=== PATIENT | male | born 1940 | race Caucasian/White ===

== ENCOUNTER 2017-12-06 07:55 | Day surgery (SDC) | payer MEDICARE, BC ==
[2017-12-06] VITALS (23 sets, daily range): BP systolic 68–153; BP diastolic 33–91
[~2017-12-06] VITALS: Ht 180.3 cm; Wt 93.4 kg
[~2017-12-06 07:55] MED LIST: HYDR12.55 PO
[2017-12-06] MEDS ORDERED: LIDOcaine 1% 30ml preserv. free vial ONE (08:29)
[2017-12-06] MEDS ORDERED: albumin (human) 25% 100ml IV 100 ML IV ONE ×2 (08:39→09:13)
[2017-12-06] MEDS ORDERED: LIDOcaine 1% 30ml preserv. free vial SQ ONE (09:00)
[2017-12-06] MEDS ORDERED: normal saline 1000ml 1,000 ML IV ONE ×2 (09:15→10:45)
[2017-12-06] MEDS ORDERED: CHOL10002 PO (10:21)
== END 2017-12-06 12:10 | disposition home or self-care (01) ==
LOC: SSTAY O 07:55
PROVIDERS: ATTEND Radiology Diagnostic Radiology
DX: K70.31 Alcoholic cirrhosis of liver with ascites (principal); E78.5 Hyperlipidemia, unspecified; I25.10 Atherosclerotic heart disease of native coronary artery without angina pectoris; I10 Essential (primary) hypertension; D69.6 Thrombocytopenia, unspecified; F17.210 Nicotine dependence, cigarettes, uncomplicated; J44.9 Chronic obstructive pulmonary disease, unspecified; Z95.5 Presence of coronary angioplasty implant and graft; Z85.46 Personal history of malignant neoplasm of prostate; Z72.89 Other problems related to lifestyle; Z79.899 Other long term (current) drug therapy
CPT/HCPCS: 49083; A6257; J3490; J7030; P9047

== ENCOUNTER 2017-12-22 07:56 | Day surgery (SDC) | payer MEDICARE, BC ==
[~2017-12-22] VITALS: Ht 180.3 cm; Wt 90.0 kg
[2017-12-22] VITALS (17 sets, daily range): BP systolic 69–144; BP diastolic 41–91
[~2017-12-22 07:56] MED LIST changes: +CHOL10002 PO; +LIDOcaine 1% 30ml preserv. free vial SQ STA
[2017-12-22] MEDS ORDERED: normal saline 1000ml 1,000 ML IV PRN (08:30)
[2017-12-22] MEDS: albumin (human) 25% 100 ML IV solution IV PRN ×2 (08:53→09:40)
== END 2017-12-22 11:40 | disposition home or self-care (01) ==
LOC: SSTAY O 07:56
PROVIDERS: ATTEND Radiology Diagnostic Radiology
DX: K70.31 Alcoholic cirrhosis of liver with ascites (principal); E78.5 Hyperlipidemia, unspecified; I25.10 Atherosclerotic heart disease of native coronary artery without angina pectoris; I10 Essential (primary) hypertension; F17.210 Nicotine dependence, cigarettes, uncomplicated; J44.9 Chronic obstructive pulmonary disease, unspecified; Z85.46 Personal history of malignant neoplasm of prostate; Z95.5 Presence of coronary angioplasty implant and graft; Z90.79 Acquired absence of other genital organ(s); Z72.89 Other problems related to lifestyle; Z79.899 Other long term (current) drug therapy
CPT/HCPCS: 49083; A6257; J3490; J7030; P9047

== ENCOUNTER 2018-01-06 08:18 | Day surgery (SDC) | payer MEDICARE, BC ==
[~2018-01-06] VITALS: Ht 180.3 cm; Wt 89.2 kg
[2018-01-06] VITALS (7 sets, daily range): BP systolic 110–118; BP diastolic 49–82
[2018-01-06] MEDS ORDERED: albumin (human) 25% 100 ML IV solution IV PRN (08:40)
[2018-01-06] MEDS ORDERED: normal saline 1000ml 1,000 ML IV PRN (08:40)
[2018-01-06] MEDS ORDERED: LIDOcaine 1% (10mg/ml) 2ml vial ONE (09:00)
== END 2018-01-06 10:20 | disposition home or self-care (01) ==
LOC: SSTAY O 08:18
PROVIDERS: ATTEND Radiology Vascular & Interventional Radiology
DX: K70.31 Alcoholic cirrhosis of liver with ascites (principal); E78.5 Hyperlipidemia, unspecified; I25.10 Atherosclerotic heart disease of native coronary artery without angina pectoris; I10 Essential (primary) hypertension; F17.210 Nicotine dependence, cigarettes, uncomplicated; J44.9 Chronic obstructive pulmonary disease, unspecified; F10.10 Alcohol abuse, uncomplicated; Z85.46 Personal history of malignant neoplasm of prostate; Z95.5 Presence of coronary angioplasty implant and graft; Z79.899 Other long term (current) drug therapy
CPT/HCPCS: 49083; A6257; J3490; J7030; P9047

== ENCOUNTER 2018-01-20 08:19 | Day surgery (SDC) | payer MEDICARE, BC ==
[~2018-01-20] VITALS: Ht 180.3 cm; Wt 88.3 kg
[2018-01-20] MEDS ORDERED: LIDOcaine 1%/PF (10mg/ml) 5ml vial ONE (08:34)
[2018-01-20] MEDS ORDERED: normal saline 1000ml 1,000 ML IV PRN (08:50)
[2018-01-20] MEDS ORDERED: albumin (human) 25% 100 ML IV solution IV PRN (08:50)
[2018-01-20 08:54] VITALS: BP 134/76
[2018-01-20 09:00] VITALS: BP 111/64
[2018-01-20 09:15] VITALS: BP 119/65
[2018-01-20 09:30] VITALS: BP 127/65
[2018-01-20 09:45] VITALS: BP 108/70
[2018-01-20] MEDS ORDERED: SPIR25TA3 PO (09:52)
[2018-01-20 10:00] VITALS: BP 114/62
== END 2018-01-20 10:05 | disposition home or self-care (01) ==
LOC: SSTAY O 08:19
PROVIDERS: ATTEND Radiology Vascular & Interventional Radiology
DX: K70.31 Alcoholic cirrhosis of liver with ascites (principal); E78.5 Hyperlipidemia, unspecified; I25.10 Atherosclerotic heart disease of native coronary artery without angina pectoris; I71.4 Abdominal aortic aneurysm, without rupture; I10 Essential (primary) hypertension; J44.9 Chronic obstructive pulmonary disease, unspecified; F17.210 Nicotine dependence, cigarettes, uncomplicated; Z90.79 Acquired absence of other genital organ(s); Z85.46 Personal history of malignant neoplasm of prostate; Z95.5 Presence of coronary angioplasty implant and graft; Z72.89 Other problems related to lifestyle; Z79.899 Other long term (current) drug therapy; Z98.890 Other specified postprocedural states
CPT/HCPCS: 49083; A6257; J2001; J3490; J7030; P9047

== ENCOUNTER 2018-02-03 08:18 | Day surgery (SDC) | payer MEDICARE, BC ==
[2018-02-03] VITALS (12 sets, daily range): BP systolic 81–122; BP diastolic 42–70
[~2018-02-03] VITALS: Ht 180.3 cm; Wt 87.2 kg
[~2018-02-03 08:18] MED LIST changes: -HYDR12.55 PO; +LIDOcaine 1% (10mg/ml) 2ml vial SQ ONE; +LIDOcaine 1% (10mg/ml) 5ml syringe IJ ONE; -LIDOcaine 1% 30ml preserv. free vial SQ STA; +SPIR25TA3 PO
[2018-02-03] MEDS ORDERED: normal saline 1000ml 1,000 ML IV PRN (08:50)
[2018-02-03] MEDS: albumin (human) 25% 100 ML IV solution IV PRN ×2 (09:35→09:59)
[2018-02-03] MEDS ORDERED: MAGN100T5 PO (09:47)
[2018-02-03] MEDS ORDERED: ondansetron/PF 4mg/2ml inj ONE (10:59)
[2018-02-03] MEDS ORDERED: ondansetron/PF 4mg/2ml inj IV ONE (11:05)
== END 2018-02-03 11:30 | disposition home or self-care (01) ==
LOC: SSTAY O 08:18
PROVIDERS: ATTEND Radiology Diagnostic Radiology
DX: K70.31 Alcoholic cirrhosis of liver with ascites (principal); E78.5 Hyperlipidemia, unspecified; I25.10 Atherosclerotic heart disease of native coronary artery without angina pectoris; H40.9 Unspecified glaucoma; Z85.46 Personal history of malignant neoplasm of prostate; Z98.890 Other specified postprocedural states; Z95.5 Presence of coronary angioplasty implant and graft; Z79.899 Other long term (current) drug therapy
CPT/HCPCS: 49083; A6257; A6449; J2405; J3490; J7030; P9047; J2001

== ENCOUNTER 2018-02-16 07:45 | Day surgery (SDC) | payer MEDICARE, BC ==
[~2018-02-16] VITALS: Ht 180.3 cm; Wt 88.3 kg
[~2018-02-16 07:45] MED LIST changes: -LIDOcaine 1% (10mg/ml) 2ml vial SQ ONE; -LIDOcaine 1% (10mg/ml) 5ml syringe IJ ONE; +LIDOcaine 1% 30ml preserv. free vial SQ STA; +MAGN100T5 PO; -SPIR25TA3 PO; +SPIR25TA5 PO
[2018-02-16] MEDS ORDERED: normal saline 1000ml 1,000 ML IV PRN (08:05)
[2018-02-16] MEDS ORDERED: albumin (human) 25% 100 ML IV solution IV PRN (08:05)
[2018-02-16 08:52] VITALS: BP 136/79
[2018-02-16 09:00] VITALS: BP 115/64
[2018-02-16 09:15] VITALS: BP 95/48
[2018-02-16 09:30] VITALS: BP 111/51
[2018-02-16 09:45] VITALS: BP 111/57
[2018-02-16 10:14] VITALS: BP 119/68
== END 2018-02-16 10:25 | disposition home or self-care (01) ==
LOC: SSTAY O 07:45
PROVIDERS: ATTEND Radiology Diagnostic Radiology
DX: K70.31 Alcoholic cirrhosis of liver with ascites (principal); J44.9 Chronic obstructive pulmonary disease, unspecified; I10 Essential (primary) hypertension; I25.10 Atherosclerotic heart disease of native coronary artery without angina pectoris; H40.9 Unspecified glaucoma; F17.210 Nicotine dependence, cigarettes, uncomplicated; E78.5 Hyperlipidemia, unspecified; Z72.89 Other problems related to lifestyle; Z95.5 Presence of coronary angioplasty implant and graft; Z90.79 Acquired absence of other genital organ(s); Z85.46 Personal history of malignant neoplasm of prostate; Z79.899 Other long term (current) drug therapy; Z98.890 Other specified postprocedural states
CPT/HCPCS: 49083; A6257; J3490; J7030; P9047

== ENCOUNTER 2018-03-01 08:46 | Day surgery (SDC) | payer MEDICARE, BC ==
[2018-03-01] VITALS (22 sets, daily range): BP systolic 59–130; BP diastolic 22–80
[~2018-03-01] VITALS: Ht 180.3 cm; Wt 86.4 kg
[~2018-03-01 08:46] MED LIST changes: -LIDOcaine 1% 30ml preserv. free vial SQ STA
[2018-03-01] MEDS ORDERED: normal saline 1000ml 1,000 ML IV PRN (09:50)
[2018-03-01] MEDS ORDERED: LIDOcaine 1% 30ml preserv. free vial SQ STA (09:57)
[2018-03-01] MEDS ORDERED: normal saline 1000ml 1,000 ML IV ONE (10:30)
[2018-03-01] MEDS: albumin (human) 25% 100 ML IV solution IV PRN ×2 (11:52→11:56)
[2018-03-01] MEDS ORDERED: diphenhydrAMINE 50 mg/ml inj IV ONE (13:10)
== END 2018-03-01 16:00 | disposition home or self-care (01) ==
LOC: SSTAY O 08:46
PROVIDERS: ATTEND Radiology Diagnostic Radiology
DX: K70.31 Alcoholic cirrhosis of liver with ascites (principal); E78.5 Hyperlipidemia, unspecified; I25.10 Atherosclerotic heart disease of native coronary artery without angina pectoris; I10 Essential (primary) hypertension; F17.210 Nicotine dependence, cigarettes, uncomplicated; J44.9 Chronic obstructive pulmonary disease, unspecified; Z95.5 Presence of coronary angioplasty implant and graft; Z90.79 Acquired absence of other genital organ(s); Z72.89 Other problems related to lifestyle; Z79.891 Long term (current) use of opiate analgesic; Z85.46 Personal history of malignant neoplasm of prostate; Z79.899 Other long term (current) drug therapy; Z98.890 Other specified postprocedural states
CPT/HCPCS: 49083; A6257; J1200; J7030; P9047

== ENCOUNTER 2018-03-17 09:01 | Day surgery (SDC) | payer MEDICARE, BC ==
[2018-03-17] VITALS (12 sets, daily range): BP systolic 73–141; BP diastolic 40–80
[~2018-03-17] VITALS: Ht 180.3 cm; Wt 86.7 kg
[2018-03-17] MEDS ORDERED: LIDOcaine 1% 30ml preserv. free vial SQ STA (09:09)
[2018-03-17] MEDS ORDERED: albumin (human) 25% 100 ML IV solution IV PRN (09:25)
[2018-03-17] MEDS ORDERED: normal saline 1000ml 1,000 ML IV PRN (09:25)
[2018-03-17] MEDS ORDERED: HYDR25TA4 PO (09:30)
== END 2018-03-17 11:50 | disposition home or self-care (01) ==
LOC: SSTAY O 09:01
PROVIDERS: ATTEND Radiology Diagnostic Radiology
DX: K70.31 Alcoholic cirrhosis of liver with ascites (principal); I25.10 Atherosclerotic heart disease of native coronary artery without angina pectoris; I10 Essential (primary) hypertension; E78.5 Hyperlipidemia, unspecified; J44.9 Chronic obstructive pulmonary disease, unspecified; F17.210 Nicotine dependence, cigarettes, uncomplicated; Z85.46 Personal history of malignant neoplasm of prostate; Z95.5 Presence of coronary angioplasty implant and graft; Z90.79 Acquired absence of other genital organ(s); Z72.89 Other problems related to lifestyle; Z79.891 Long term (current) use of opiate analgesic; Z98.890 Other specified postprocedural states; Z79.899 Other long term (current) drug therapy
CPT/HCPCS: 49083; A6257; J7030; P9047

== ENCOUNTER 2018-03-24 08:22 | Day surgery (SDC) | payer MEDICARE, BC ==
[2018-03-24] VITALS (7 sets, daily range): BP systolic 111–134; BP diastolic 63–85
[~2018-03-24] VITALS: Ht 180.3 cm; Wt 84.4 kg
[~2018-03-24 08:22] MED LIST changes: +HYDR25TA4 PO; +LIDOcaine 1% (10mg/ml) 5ml syringe SQ ONE
[2018-03-24] MEDS ORDERED: LIDOcaine 1%/PF 5ML 10 MG/ML VIAL SQ ONE (08:25)
[2018-03-24] MEDS ORDERED: normal saline 1000ml 1,000 ML IV PRN (08:55)
[2018-03-24] MEDS ORDERED: albumin (human) 25% 100 ML IV solution IV PRN (09:00)
== END 2018-03-24 10:50 | disposition home or self-care (01) ==
LOC: SSTAY O 08:22
PROVIDERS: ATTEND Radiology Diagnostic Radiology
DX: K70.31 Alcoholic cirrhosis of liver with ascites (principal); E78.5 Hyperlipidemia, unspecified; I25.10 Atherosclerotic heart disease of native coronary artery without angina pectoris; I10 Essential (primary) hypertension; J44.9 Chronic obstructive pulmonary disease, unspecified; F17.210 Nicotine dependence, cigarettes, uncomplicated; Z90.79 Acquired absence of other genital organ(s); Z72.89 Other problems related to lifestyle; Z79.891 Long term (current) use of opiate analgesic; Z92.21 Personal history of antineoplastic chemotherapy; Z95.5 Presence of coronary angioplasty implant and graft; Z85.46 Personal history of malignant neoplasm of prostate; Z98.890 Other specified postprocedural states; Z79.899 Other long term (current) drug therapy
CPT/HCPCS: 49083; A6257; J2001; J7030; P9047

== ENCOUNTER 2018-03-31 07:38 | Day surgery (SDC) | payer MEDICARE, BC ==
[~2018-03-31] VITALS: Ht 180.3 cm; Wt 83.7 kg
[~2018-03-31 07:38] MED LIST changes: -LIDOcaine 1% (10mg/ml) 5ml syringe SQ ONE; +LIDOcaine 1%/PF 5ML 10 MG/ML VIAL IJ ONE
[2018-03-31] MEDS ORDERED: albumin (human) 25% 100 ML IV solution IV PRN (08:10)
[2018-03-31] MEDS ORDERED: normal saline 1000ml 1,000 ML IV PRN (08:10)
[2018-03-31 08:30] VITALS: BP 109/70
[2018-03-31 08:45] VITALS: BP 121/77
[2018-03-31 09:00] VITALS: BP 105/63
[2018-03-31 09:15] VITALS: BP 111/67
[2018-03-31 09:27] VITALS: BP 112/67
== END 2018-03-31 09:40 | disposition home or self-care (01) ==
LOC: SSTAY O 07:38
PROVIDERS: ATTEND Radiology Diagnostic Radiology
DX: K70.31 Alcoholic cirrhosis of liver with ascites (principal); E78.5 Hyperlipidemia, unspecified; I25.10 Atherosclerotic heart disease of native coronary artery without angina pectoris; I10 Essential (primary) hypertension; F17.210 Nicotine dependence, cigarettes, uncomplicated; J44.9 Chronic obstructive pulmonary disease, unspecified; Z90.79 Acquired absence of other genital organ(s); Z95.5 Presence of coronary angioplasty implant and graft; Z72.89 Other problems related to lifestyle; Z92.21 Personal history of antineoplastic chemotherapy; Z79.891 Long term (current) use of opiate analgesic; Z85.46 Personal history of malignant neoplasm of prostate; Z98.890 Other specified postprocedural states; Z79.899 Other long term (current) drug therapy
CPT/HCPCS: 49083; J2001; J7030; P9047

== ENCOUNTER 2018-04-14 07:35 | Day surgery (SDC) | payer MEDICARE, BC ==
[~2018-04-14] VITALS: Ht 180.3 cm; Wt 85.5 kg
[~2018-04-14 07:35] MED LIST changes: -LIDOcaine 1%/PF 5ML 10 MG/ML VIAL IJ ONE; +LIDOcaine 1%/PF 5ML 10 MG/ML VIAL SQ ONE
[2018-04-14] MEDS ORDERED: normal saline 1000ml 1,000 ML IV PRN (07:55)
[2018-04-14] MEDS ORDERED: albumin (human) 25% 100 ML IV solution IV PRN (07:55)
[2018-04-14 08:30] VITALS: BP 129/77
[2018-04-14 08:45] VITALS: BP 110/74
[2018-04-14 09:00] VITALS: BP 104/68
[2018-04-14 09:15] VITALS: BP 104/71
[2018-04-14 09:30] VITALS: BP 85/49
[2018-04-14 09:35] VITALS: BP 98/44
[2018-04-14 09:55] LABS: INR 1.2 INR; PROTHROMBIN TIME 12.2 SECONDS (9.0-12.0)
[2018-04-14 10:03] LABS: ALANINE AMINOTRANSFERASE 31 U/L (12-78); ALBUMIN 2.6 G/DL (3.4-5.0); ALBUMIN/GLOBULIN RATIO 0.4 (1.1-1.5); ALKALINE PHOSPHATASE 186 IU/L (46-116); ANION GAP 10 (8-16); ASPARTATE AMINO TRANSFERASE 71 U/L (10-37); BILIRUBIN,TOTAL 2.9 MG/DL (0.1-1.0); BLOOD UREA NITROGEN 15 MG/DL (7-18); BUN/CREATININE RATIO 13.5 (5.4-32.0); CALCIUM 9.4 MG/DL (8.5-10.1); CHLORIDE 96 MMOL/L (99-107); CREATININE 1.11 MG/DL (0.60-1.10); GLUCOSE 112 MG/DL (70-104); SODIUM 129 MMOL/L (135-145); TOTAL CARBON DIOXIDE 23.5 MMOL/L (24-32); TOTAL PROTEIN 8.4 G/DL (6.4-8.2); eGFR 64 ML/MIN
[2018-04-14 10:05] LABS: POTASSIUM 5.3 MMOL/L (3.5-5.1)
[2018-04-14 10:07] LABS: BASOPHILS % (AUTO) 0.8 % (0-1); EOSINOPHILS % (AUTO) 0.1 % (0-6); HEMATOCRIT 45.7 % (42.0-52.0); HEMOGLOBIN 16.1 g/dl (14.0-17.9); LYMPHOCYTES # (AUTO) 0.4 X10'3 (1.1-4.8); LYMPHOCYTES % (AUTO) 9.8 % (21-51); MEAN CORPUSCULAR HEMOGLOBIN 41.1 PG (27.0-31.0); MEAN CORPUSCULAR HGB CONC 35.3 % (33.0-36.5); MEAN CORPUSCULAR VOLUME 116.6 FL (78-98); MONOCYTES # (AUTO) 0.4 X10'3 (0-0.9); MONOCYTES % (AUTO) 9.8 % (2-12); NEUTROPHILS # (AUTO) 3.3 X10'3 (1.8-7.7); NEUTROPHILS % (AUTO) 79.5 % (42-75); PLATELET COUNT 65 X10'3 (140-440); RED BLOOD COUNT 3.92 X10'6 (4.70-6.10); RED CELL DISTRIBUTION WIDTH 15.1 % (11.5-14.5); WHITE BLOOD COUNT 4.1 X10'3 (4.5-11.0)
== END 2018-04-14 09:40 | disposition home or self-care (01) ==
LOC: SSTAY O 07:35
PROVIDERS: ATTEND Radiology Diagnostic Radiology
DX: K70.31 Alcoholic cirrhosis of liver with ascites (principal); E78.5 Hyperlipidemia, unspecified; I25.10 Atherosclerotic heart disease of native coronary artery without angina pectoris; I10 Essential (primary) hypertension; J44.9 Chronic obstructive pulmonary disease, unspecified; F17.210 Nicotine dependence, cigarettes, uncomplicated; Z90.79 Acquired absence of other genital organ(s); Z72.89 Other problems related to lifestyle; Z79.891 Long term (current) use of opiate analgesic; Z92.21 Personal history of antineoplastic chemotherapy; Z95.5 Presence of coronary angioplasty implant and graft; Z85.46 Personal history of malignant neoplasm of prostate; Z98.890 Other specified postprocedural states; Z79.899 Other long term (current) drug therapy
CPT/HCPCS: 36415; 49083; 80053; 85025; 85610; J2001; J7030; P9047; A6257

== ENCOUNTER 2018-04-21 06:57 | Day surgery (SDC) | payer MEDICARE, BC ==
[~2018-04-21] VITALS: Ht 180.3 cm; Wt 83.9 kg
[2018-04-21] VITALS (21 sets, daily range): BP systolic 72–142; BP diastolic 43–77
[2018-04-21] MEDS ORDERED: albumin (human) 25% 100 ML IV solution IV PRN (07:15)
[2018-04-21] MEDS ORDERED: normal saline 1000ml 1,000 ML IV PRN (07:15)
[2018-04-21] MEDS ORDERED: diphenhydrAMINE 50 mg/ml inj IV ONE (10:45)
== END 2018-04-21 11:50 | disposition home or self-care (01) ==
LOC: SSTAY O 06:57
PROVIDERS: ATTEND Radiology Diagnostic Radiology
DX: K70.31 Alcoholic cirrhosis of liver with ascites (principal); I10 Essential (primary) hypertension; J44.9 Chronic obstructive pulmonary disease, unspecified; M19.90 Unspecified osteoarthritis, unspecified site; G89.29 Other chronic pain; I25.10 Atherosclerotic heart disease of native coronary artery without angina pectoris; E78.5 Hyperlipidemia, unspecified; F17.210 Nicotine dependence, cigarettes, uncomplicated; Z92.21 Personal history of antineoplastic chemotherapy; Z79.891 Long term (current) use of opiate analgesic; Z95.5 Presence of coronary angioplasty implant and graft; Z90.79 Acquired absence of other genital organ(s); Z72.89 Other problems related to lifestyle; Z85.46 Personal history of malignant neoplasm of prostate; Z79.899 Other long term (current) drug therapy; Z98.890 Other specified postprocedural states
CPT/HCPCS: 49083; A6257; A6449; J1200; J2001; J7030; P9047

== ENCOUNTER 2018-04-28 09:15 | Day surgery (SDC) | payer MEDICARE, BC ==
[~2018-04-28] VITALS: Ht 180.3 cm; Wt 83.7 kg
[2018-04-28] VITALS (8 sets, daily range): BP systolic 102–128; BP diastolic 64–77
[~2018-04-28 09:15] MED LIST changes: -MAGN100T5 PO
[2018-04-28] MEDS ORDERED: diphenhydrAMINE 50 mg/ml inj IV STA (10:23)
[2018-04-28] MEDS ORDERED: albumin (human) 25% 100 ML IV solution IV PRN (10:25)
== END 2018-04-28 12:25 | disposition home or self-care (01) ==
LOC: SSTAY O 09:15
PROVIDERS: ATTEND Radiology Diagnostic Radiology
DX: K70.31 Alcoholic cirrhosis of liver with ascites (principal); I10 Essential (primary) hypertension; J44.9 Chronic obstructive pulmonary disease, unspecified; M19.90 Unspecified osteoarthritis, unspecified site; G89.29 Other chronic pain; I25.10 Atherosclerotic heart disease of native coronary artery without angina pectoris; E78.5 Hyperlipidemia, unspecified; F17.210 Nicotine dependence, cigarettes, uncomplicated; F10.10 Alcohol abuse, uncomplicated; Z90.79 Acquired absence of other genital organ(s); Z95.5 Presence of coronary angioplasty implant and graft; Z85.46 Personal history of malignant neoplasm of prostate; Z92.21 Personal history of antineoplastic chemotherapy; Z79.891 Long term (current) use of opiate analgesic; Z79.899 Other long term (current) drug therapy; Z98.890 Other specified postprocedural states; Z88.8 Allergy status to other drugs, medicaments and biological substances
CPT/HCPCS: 49083; A6257; J1200; J2001; J7030; P9047

== ENCOUNTER 2018-05-05 08:17 | Day surgery (SDC) | payer MEDICARE, BC ==
[~2018-05-05] VITALS: Ht 180.3 cm; Wt 77.0 kg
[~2018-05-05 08:17] MED LIST changes: -LIDOcaine 1%/PF 5ML 10 MG/ML VIAL SQ ONE
[2018-05-05] MEDS ORDERED: LIDOcaine 1%/PF 5ML 10 MG/ML VIAL SQ ONE (08:25)
[2018-05-05 08:33] VITALS: BP 151/86
[2018-05-05] MEDS ORDERED: diphenhydrAMINE 25mg capsule PO ONE (08:40)
[2018-05-05] MEDS ORDERED: normal saline 1000ml 1,000 ML IV PRN (08:50)
[2018-05-05] MEDS ORDERED: albumin (human) 25% 100 ML IV solution IV PRN (08:50)
[2018-05-05 09:01] VITALS: BP 148/85
[2018-05-05 09:15] VITALS: BP 138/75
[2018-05-05 09:30] VITALS: BP 127/80
[2018-05-05 09:45] VITALS: BP 124/81
[2018-05-05 09:54] VITALS: BP 118/91
== END 2018-05-05 09:58 | disposition home or self-care (01) ==
LOC: SSTAY O 08:17
PROVIDERS: ATTEND Radiology Diagnostic Radiology
DX: K70.31 Alcoholic cirrhosis of liver with ascites (principal); E78.5 Hyperlipidemia, unspecified; I25.10 Atherosclerotic heart disease of native coronary artery without angina pectoris; I10 Essential (primary) hypertension; F17.210 Nicotine dependence, cigarettes, uncomplicated; M19.90 Unspecified osteoarthritis, unspecified site; G89.29 Other chronic pain; J44.9 Chronic obstructive pulmonary disease, unspecified; Z79.891 Long term (current) use of opiate analgesic; Z85.46 Personal history of malignant neoplasm of prostate; Z92.21 Personal history of antineoplastic chemotherapy; Z95.5 Presence of coronary angioplasty implant and graft; Z72.89 Other problems related to lifestyle; Z90.79 Acquired absence of other genital organ(s); Z88.8 Allergy status to other drugs, medicaments and biological substances; Z79.899 Other long term (current) drug therapy; Z98.890 Other specified postprocedural states
CPT/HCPCS: 49083; A6257; J2001; J7030; P9047; Q0163

== ENCOUNTER 2018-05-12 08:26 | Day surgery (SDC) | payer MEDICARE, BC ==
[2018-05-12] VITALS (8 sets, daily range): BP systolic 114–138; BP diastolic 63–76
[~2018-05-12] VITALS: Ht 180.3 cm; Wt 80.8 kg
[~2018-05-12 08:26] MED LIST changes: -HYDR25TA4 PO; +LIDOcaine 1%/PF 5ML 10 MG/ML VIAL SQ ONE
[2018-05-12] MEDS ORDERED: normal saline 1000ml 1,000 ML IV PRN (08:45)
[2018-05-12] MEDS ORDERED: albumin (human) 25% 100 ML IV solution IV PRN (09:45)
== END 2018-05-12 10:55 | disposition home or self-care (01) ==
LOC: SSTAY O 08:26
PROVIDERS: ATTEND Radiology Diagnostic Radiology
DX: K70.31 Alcoholic cirrhosis of liver with ascites (principal); E78.5 Hyperlipidemia, unspecified; I25.10 Atherosclerotic heart disease of native coronary artery without angina pectoris; I10 Essential (primary) hypertension; F17.210 Nicotine dependence, cigarettes, uncomplicated; J44.9 Chronic obstructive pulmonary disease, unspecified; M19.90 Unspecified osteoarthritis, unspecified site; G89.29 Other chronic pain; F10.10 Alcohol abuse, uncomplicated; Z95.5 Presence of coronary angioplasty implant and graft; Z92.21 Personal history of antineoplastic chemotherapy; Z72.89 Other problems related to lifestyle; Z85.46 Personal history of malignant neoplasm of prostate; Z90.79 Acquired absence of other genital organ(s); Z88.8 Allergy status to other drugs, medicaments and biological substances; Z79.899 Other long term (current) drug therapy; Z98.890 Other specified postprocedural states
CPT/HCPCS: 49083; A6257; J2001; J7030; P9047

== ENCOUNTER 2018-05-26 07:55 | Day surgery (SDC) | payer MEDICARE, BC ==
[~2018-05-26] VITALS: Ht 180.3 cm; Wt 79.7 kg
[2018-05-26] VITALS (8 sets, daily range): BP systolic 112–128; BP diastolic 60–75
[2018-05-26] MEDS ORDERED: albumin (human) 25% 100 ML IV solution IV PRN (08:15)
[2018-05-26] MEDS ORDERED: normal saline 1000ml 1,000 ML IV PRN (08:15)
[2018-05-26] MEDS ORDERED: LOPE-155 PO (09:08)
== END 2018-05-26 10:10 | disposition home or self-care (01) ==
LOC: SSTAY O 07:55
PROVIDERS: ATTEND Radiology Diagnostic Radiology
DX: K70.31 Alcoholic cirrhosis of liver with ascites (principal); E78.5 Hyperlipidemia, unspecified; I25.10 Atherosclerotic heart disease of native coronary artery without angina pectoris; I10 Essential (primary) hypertension; F17.210 Nicotine dependence, cigarettes, uncomplicated; J44.9 Chronic obstructive pulmonary disease, unspecified; M19.90 Unspecified osteoarthritis, unspecified site; G89.29 Other chronic pain; F10.10 Alcohol abuse, uncomplicated; Z90.79 Acquired absence of other genital organ(s); Z92.21 Personal history of antineoplastic chemotherapy; Z95.5 Presence of coronary angioplasty implant and graft; Z79.891 Long term (current) use of opiate analgesic; Z85.46 Personal history of malignant neoplasm of prostate; Z88.8 Allergy status to other drugs, medicaments and biological substances; Z98.890 Other specified postprocedural states; Z79.899 Other long term (current) drug therapy
CPT/HCPCS: 49083; A6257; A6449; J2001; J7030; P9047

== ENCOUNTER 2018-06-02 08:33 | Day surgery (SDC) | payer MEDICARE, BC ==
[2018-06-02] VITALS (7 sets, daily range): BP systolic 105–138; BP diastolic 56–78
[~2018-06-02] VITALS: Ht 180.3 cm; Wt 80.9 kg
[~2018-06-02 08:33] MED LIST changes: +LIDOcaine 1% (10mg/ml)w/preservative injection 20ml MDV SQ ONE; +LOPE-155 PO
[2018-06-02] MEDS ORDERED: albumin (human) 25% 100 ML IV solution IV PRN (09:05)
[2018-06-02] MEDS ORDERED: normal saline 1000ml 1,000 ML IV PRN (09:05)
[2018-06-02] MEDS ORDERED: LIDOcaine 1% (10mg/ml)w/preservative injection 20ml MDV SQ ONE (09:20)
== END 2018-06-02 10:25 | disposition home or self-care (01) ==
LOC: SSTAY O 08:33
PROVIDERS: ATTEND Radiology Diagnostic Radiology
DX: K70.31 Alcoholic cirrhosis of liver with ascites (principal); E78.5 Hyperlipidemia, unspecified; I25.10 Atherosclerotic heart disease of native coronary artery without angina pectoris; I10 Essential (primary) hypertension; F17.210 Nicotine dependence, cigarettes, uncomplicated; J44.9 Chronic obstructive pulmonary disease, unspecified; G89.29 Other chronic pain; M19.90 Unspecified osteoarthritis, unspecified site; F10.10 Alcohol abuse, uncomplicated; Z90.79 Acquired absence of other genital organ(s); Z95.5 Presence of coronary angioplasty implant and graft; Z85.46 Personal history of malignant neoplasm of prostate; Z92.21 Personal history of antineoplastic chemotherapy; Z92.3 Personal history of irradiation; Z79.899 Other long term (current) drug therapy; Z98.890 Other specified postprocedural states
CPT/HCPCS: 49083; A6257; J2001; J7030; P9047

== ENCOUNTER 2018-06-16 08:24 | Day surgery (SDC) | payer MEDICARE, BC ==
[~2018-06-16] VITALS: Ht 180.3 cm; Wt 81.0 kg
[2018-06-16] VITALS (10 sets, daily range): BP systolic 92–122; BP diastolic 53–75
[~2018-06-16 08:24] MED LIST changes: +LIDOcaine 1% (10mg/ml)w/preservative injection 20ml MDV IJ ONE; -LIDOcaine 1% (10mg/ml)w/preservative injection 20ml MDV SQ ONE; -LIDOcaine 1%/PF 5ML 10 MG/ML VIAL SQ ONE
[2018-06-16] MEDS ORDERED: albumin (human) 25% 100 ML IV solution IV PRN (08:50)
[2018-06-16] MEDS ORDERED: normal saline 1000ml 1,000 ML IV PRN (08:50)
== END 2018-06-16 11:00 | disposition home or self-care (01) ==
LOC: SSTAY O 08:24
PROVIDERS: ATTEND Radiology Diagnostic Radiology
DX: K70.31 Alcoholic cirrhosis of liver with ascites (principal); I25.10 Atherosclerotic heart disease of native coronary artery without angina pectoris; E78.5 Hyperlipidemia, unspecified; I10 Essential (primary) hypertension; F17.210 Nicotine dependence, cigarettes, uncomplicated; G89.29 Other chronic pain; J44.9 Chronic obstructive pulmonary disease, unspecified; Z95.5 Presence of coronary angioplasty implant and graft; Z90.79 Acquired absence of other genital organ(s); Z72.89 Other problems related to lifestyle; Z85.46 Personal history of malignant neoplasm of prostate; Z92.21 Personal history of antineoplastic chemotherapy; Z92.3 Personal history of irradiation; Z98.890 Other specified postprocedural states; Z79.899 Other long term (current) drug therapy
CPT/HCPCS: 49083; J2001; J7030; P9047

== ENCOUNTER 2018-06-23 08:00 | Outpatient (CLI) | payer MEDICARE, BC ==
[~2018-06-23 08:00] MED LIST changes: -LIDOcaine 1% (10mg/ml)w/preservative injection 20ml MDV IJ ONE; +LIDOcaine 1% (10mg/ml)w/preservative injection 20ml MDV SQ ONE
== END 2018-06-23 08:01 | disposition home or self-care (01) ==
LOC: SSTAY O 08:00 → EDSTATUS 09:30
PROVIDERS: ATTEND Radiology Vascular & Interventional Radiology
DX: R18.8 Other ascites (principal); Z53.09 Procedure and treatment not carried out because of other contraindication